=== PATIENT | male | born 1995 | race Caucasian/White ===

== ENCOUNTER 2017-05-27 12:44 | Emergency (ER) | payer OTHER ==
[~2017-05-27] VITALS: Ht 172.7 cm; Wt 72.0 kg
[2017-05-27 12:48] VITALS: Ht 172.7 cm; Wt 72.0 kg
[2017-05-27] MEDS ORDERED: ERYT1OIN6 RIGHT EYE (15:14)
[2017-05-27 15:38] VITALS: BP 122/71; PULSE 72; RESP 18; TEMP 98
--- NOTE | 2017-05-27 15:46 | ERD ---
ER Documentation Chief Complaint Date/Time DATE: 05/27/17 TIME: 15:41 Chief Complaint RT EYE SWELLING X 1 DAY HPI This is a 22 year old male presenting to ER with right eye pain and eyelid swelling x 1 day. Patient states he woke up this morning with pain and swelling or right eyelid. No change in vision, loss of vision or blurry vision. No fevers or chills. No pain with eye movement. No foreign body sensation. No headache. ROS All systems reviewed and are negative except as per history of present illness. Medications Home Meds Active Scripts Erythromycin (Erythromycin Opth) 3.5 Gm Oint..gm., 1 APPLIC RIGHT EYE QID, #1 Prov:JACQUES VENTURATESS De La Torre NP 05/27/17 PMhx/Soc Medical and Surgical Hx: pt denies Medical Hx, pt denies Surgical Hx Hx Alcohol Use: No Hx Substance Use: No Hx Tobacco Use: No Smoking Status: Never smoker Physical Exam Vitals Vital Signs Date Time Temp Pulse Resp B/P Pulse Ox O2 Delivery O2 Flow Rate FiO2 05/27/17 15:38 98.0 72 18 122/71 100 Room Air 05/27/17 12:48 97.7 80 18 128/78 99 Physical Exam Const: Alert, no acute distress Head: Atraumatic Eyes: Normal Conjunctiva, EOMs intact, PERRL ENT: Normal External Ears, Nose and Mouth. Skin: No petechiae or rashes Back: No midline or flank tenderness Ext: No cyanosis, or edema Neur: Awake and alert Psych: Normal Mood and Affect Procedures/MDM MDM: 22 year old male presenting to ER with eye pain and eyelid swelling x 1 day. No subconjunctival hemorrhage or erythema. No tenderness to palpation. No fevers or chills. PERRLA and EOMs intact on physical exam. No limitation of EOMs on physical exam. No change in vision, loss of vision, blurry vision, floaters, halos around lights, veil or curtain coming down over eye. Denies photophobia, diplopia or headache. No foreign body sensation to eye. No erythema, discharge or tearing to conjunctiva. No itching or burning. Patient had some yellow discharge from right eye this morning. No nasal congestion, sinusitis, cough, shortness breath or difficulty breathing. No facial lesions or rash.There is no pain with eye movement and no proptosis therefore I have low suspicion for orbital cellulitis or periorbital abscess. No rash, burning or lesion therefore I have low suspicion for herpes zoster or varicella. No visual changes, photophobia or loss of vision so I have low suspicion for acute angle closure glaucoma or iritis. Visual acuity is 20/25 right, 20/15 left, 20/ 20 bilateral. Patient does not wear glasses or contacts. Differential diagnosis includes but not limited to periorbital cellulitis, allergic reaction, insect bite, blepharitis, bacterial conjunctivitis, viral conjunctivitis, allergic conjunctivitis, allergic reaction, blepharitis, hordeolum or chalazion. Low suspicion for orbital cellulitis, periorbital abscess, varicella, angle closure glaucoma or iritis. Patient is appropriate for outpatient management and will be given prescription for erythromycin opth. ointment. Instructed patient to follow-up with primary care provider in the next 2-3 days for reassessment. Return to ED for any high fever, chest pain, difficulty breathing, shortness breath, wheezing, vomiting, diarrhea, abdominal pain or any new or worsening symptoms. Patient verbalizes understanding. All questions answered at discharge. Disclaimer: Inadvertent spelling and grammatical errors are likely due to EHR/ dictation software use and do not reflect on the overall quality of patient care. Also, please note that the electronic time recorded on this note does not necessarily reflect the actual time of the patient encounter. Departure Diagnosis: Primary Impression: Blepharitis Blepharitis type: unspecified type Laterality: right Eyelid: upper Qualified Code: H01.001 - Blepharitis of right upper eyelid, unspecified type Condition: Stable Patient Instructions: Blepharitis Referrals: [facility] YOU HAVE RECEIVED A MEDICAL SCREENING EXAM AND THE RESULTS INDICATE THAT YOU DO NOT HAVE A CONDITION THAT REQUIRES URGENT TREATMENT IN THE EMERGENCY DEPARTMENT. FURTHER EVALUATION AND TREATMENT OF YOUR CONDITION CAN WAIT UNTIL YOU ARE SEEN IN YOUR DOCTORS OFFICE WITHIN THE NEXT 1-2 DAYS. IT IS YOUR RESPONSIBILITY TO MAKE AN APPOINTMENT FOR FOLOW-UP CARE. IF YOU HAVE A PRIMARY DOCTOR --you should call your primary doctor and schedule an appointment IF YOU DO NOT HAVE A PRIMARY DOCTOR YOU CAN CALL OUR PHYSICIAN REFERRAL HOTLINE AT IF YOU CAN NOT AFFORD TO SEE A PHYSICIAN YOU CAN CHOSE FROM THE FOLLOWING [facility] [address] [facility] [address] [facility] [address] [facility] [address] [facility] [address] [facility]. [facility] [address] [facility]. [facility] YOU HAVE RECEIVED A MEDICAL SCREENING EXAM AND THE RESULTS INDICATE THAT YOU DO NOT HAVE A CONDITION THAT REQUIRES URGENT TREATMENT IN THE EMERGENCY DEPARTMENT. FURTHER EVALUATION AND TREATMENT OF YOUR CONDITION CAN WAIT UNTIL YOU ARE SEEN IN YOUR DOCTORS OFFICE WITHIN THE NEXT 1-2 DAYS. IT IS YOUR RESPONSIBILITY TO MAKE AN APPOINTMENT FOR FOLOW-UP CARE. IF YOU HAVE A PRIMARY DOCTOR --you should call your primary doctor and schedule and appointment IF YOU DO NOT HAVE A PRIMARY DOCTOR YOU CAN CALL OUR PHYSICIAN REFERRAL HOTLINE AT . IF YOU CAN NOT AFFORD TO SEE A PHYSICIAN YOU CAN CHOSE FROM THE FOLLOWING [facility] INSTITUTIONS: [facility] [address] [place] [address] [facility] [address] [place] [address] [facility] + [facility] [address] [place] [address] Additional Instructions: Call your primary care doctor TOMORROW for an appointment during the next 2-3 days.See the doctor sooner or return here if your condition worsens before your appointment time. Return to ED for any high fever, chest pain, difficulty breathing, shortness breath, wheezing, vomiting, diarrhea, abdominal pain or any new or worsening symptoms. BRIANA VENTURA NP May 27, 2017 15:46
== END 2017-05-27 15:38 | disposition home or self-care (01) ==
LOC: FTE 12:44
DX: H01.001 Unspecified blepharitis right upper eyelid (principal)
CPT/HCPCS: 99283

== ENCOUNTER 2017-05-29 15:34 | Emergency (ER) | payer OTHER ==
[~2017-05-29] VITALS: Ht 157.5 cm; Wt 78.0 kg
[~2017-05-29 15:34] MED LIST: ERYT1OIN6 RIGHT EYE
[2017-05-29 15:40] VITALS: Ht 157.5 cm; Wt 78.0 kg
[2017-05-29] MEDS ORDERED: CETI10CA PO (18:13)
[2017-05-29] MEDS ORDERED: AMOX1TAB10 PO (18:13)
[2017-05-29] MEDS ORDERED: AMOXICILLIN/CLAV 875 MG TAB PO ONE (18:30)
--- NOTE | 2017-05-29 18:49 | ERA ---
ER Documentation Chief Complaint Date/Time DATE: 05/29/17 TIME: 18:45 Chief Complaint right eye pain/swelling x 3 days HPI Otherwise healthy 22-year-old male with a chief complaint of right eye swelling and discomfort. Patient was seen 3 days ago by DOMINIQUE Rubin and diagnosed with conjunctivitis and prescribed erythromycin ophthalmic solution. Patient states that symptoms have not gotten better. Denies Denies contacts, foreign body sensation, eye pain, photophobia, known foreign body, trauma, decreased vision, headache, or fever. Patient has no other complaints and describes no other associated manifestations. Nursing notes have been reviewed and are consistent with history given. ROS All systems reviewed and are negative except as per history of present illness. Medications Home Meds Active Scripts Cetirizine Hcl* (Zyrtec*) 10 Mg Capsule, 10 MG PO DAILY, #10 TAB.CHEW Prov:MARÍA LEMUS PA-C 05/29/17 Amoxicillin/Potassium Clav (Amox-Clav 875-125 mg Tablet) 875-125 mg Tab, 1 TAB PO BID for 10 Days, #20 TAB Prov:MARÍA LEMUS PA-C 05/29/17 Erythromycin (Erythromycin Opth) 3.5 Gm Oint..gm., 1 APPLIC RIGHT EYE QID, #1 Prov:BRIANA VENTURA NP 05/27/17 PMhx/Soc Medical and Surgical Hx: pt denies Medical Hx, pt denies Surgical Hx History of Surgery: No Anesthesia Reaction: No Hx Neurological Disorder: No Hx Respiratory Disorders: No Hx Cardiac Disorders: No Hx Psychiatric Problems: No Hx Miscellaneous Medical Probl: No Hx Alcohol Use: No Hx Substance Use: No Hx Tobacco Use: No Smoking Status: Never smoker Physical Exam Vitals Vital Signs Date Time Temp Pulse Resp B/P Pulse Ox O2 Delivery O2 Flow Rate FiO2 05/29/17 15:40 98.1 64 18 128/80 99 Physical Exam Const: Healthy-appearing. Well-nourished. Well-developed. No acute distress. Eyes: Right lateral superior periorbital swelling. Mild conjunctival hemorrhage on the inferior lateral aspect of the right eye. EOMI and RAFI bilaterally. Mild tenderness to palpation. Neur: Awake, alert and oriented x3. Neurovascularly intact bilaterally. Psych: Normal Mood and Affect. Head: Normocephalic, Atraumatic. Ears: Normal External Ears, EACs clear, TM normal bilaterally without erythema. Nose: Normal nose without discharge, septal deviation, or sinus tenderness. Oral: No oral edema visualized. Mucous membranes moist and pink. Neck: No cervical lymphadenopathy, masses or goiter palpated. Trachea midline. Supple ~ No meningismus. Pulm: Good air movement in upper and lower respiratory tracts. No dyspnea, stridor, tripoding or drooling. Clear to auscultation bilaterally. Cardio: Regular rate and rhythm; No murmurs, gallops or rubs auscultated. No JVD grossly observed. Radial and posterior tibial pulses 2+ bilaterally. No cyanosis. Capillary refill less than 2 seconds. Abd: Soft, non tender, non distended. No guarding, masses. Normal bowel sounds. No McBurney's point tenderness. MS: Normal motor strength, normal tone with gross examination. Skin: No petechiae or rashes. No ulcer, induration, jaundice. Good turgor. Back: No midline, flank or CVA tenderness. Ext: No cyanosis, edema or palpable cord. Normal movement of all extremities grossly observed. Results 24 hrs Current Medications Medications (Trade) Dose Ordered Sig/Sami Route PRN Reason Start Time Stop Time Status Last Admin Dose Admin Amoxicillin/ Clavulanate Potassium (Augmentin) 875 mg ONCE ONCE PO 05/29/17 18:30 05/29/17 18:31 DC 05/29/17 18:42 Procedures/MDM Patient is being worked up and evaluated for a pruritic, non-painful, acute red right periorbital area as described in the history and physical exam. My current differential includes, but is not limited to, the following: conjunctivitis, uveitis, keratitis, scleritis, dacryocystitis, corneal foreign body, corneal ulcer, etc. The current most likely diagnosis is dacryocystitis versus periorbital cellulitis. Treatment will thus include OTC acetaminophen for discomfort and Augmentin p.o. for infection. First dose was given in the ED. At this time I have very little suspicion for orbital cellulitis, acute red eye, or other emergent pathologies.I have spoke with my attending who evaluated the patient himself and has agreed with the assessment and plan. I have spoke with the patient regarding their condition and future management. They have verbally responded that they understand their status and treatment plan. The patients vitals are stable, and their current condition is appropriate for discharge. The patient will be given discharge instructions with return precautions. Departure Diagnosis: Primary Impression: Eye problem Condition: Stable Patient Instructions: Dacrocystitis Additional Instructions: Follow up with your PCP within the next 1-3 days for a more thorough evaluation and a possible referral to a specialist. Return the the emergency department immediately if symptoms worsen or change. If you have any questions regarding medications, ask your pharmacist or us before you leave. If any adverse reactions occur while taking your medications, discontinue the treatment and return to the emergency department immediately. Take your medications as directed, and complete the entire course of treatment. MARÍA LEMUS PA-C May 29, 2017 18:49
== END 2017-05-29 18:57 | disposition home or self-care (01) ==
LOC: FTE 15:34
DX: H57.11 Ocular pain, right eye (principal)
CPT/HCPCS: Z7502; Z7610; 99283